=== PATIENT | male | born 1950 | race Caucasian/White ===

== ENCOUNTER 2018-06-03 11:16 | Outpatient (CLI) | payer MEDICARE, BC ==
[2018-06-03 14:07] LABS: #Basophils 0.1 thou/uL (0.0-0.2); #Eosinphils 0.3 thou/uL (0.0-0.7); #Monocytes 0.5 thou/uL (0.11-0.59); #Neutrophils 5.6 thou/uL (1.40-6.50); %Eosinophils 3.7 % (0.0-10.0); %Lymphocytes 23.3 % (21.0-51.0); %Monocytes 5.8 % (0.0-10.0); %Neutrophils 66.2 % (42.0-75.0); Hemoglobin 14.9 g/dL (14.0-18.0); Mean Corpuscular HGB CONC 33.4 g/dL (32.0-36.0); Mean Corpuscular Hemoglobin 30.8 pg (27.0-31.0); Mean Corpuscular Volume 92.3 fL (78.0-98.0); Platelet Count 230 thou/uL (130-400); RBC Distribution Width 11.6 % (11.5-14.5); Red Blood Cell (RBC) Count 4.85 mill/uL (4.70-6.10); White Blood Cell (WBC) Count 8.5 thou/uL (4.8-10.8)
[2018-06-03 14:29] LABS: ALT (SGPT) 22 U/L (8-55); AST (SGOT) 23 U/L (5-34); Albumin 4.4 g/dL (3.4-4.8); Alkaline Phosphatase 64 U/L (40-150); Anion Gap 13 mmol/L (10-20); BUN (Urea Nitrogen) 23 mg/dL (8.4-25.7); Bilirubin, Total 0.5 mg/dL (0.2-1.2); Calc. Creatinine Clearance 0 mL/min (70-130); Calcium 10.5 mg/dL (7.8-10.44); Carbon Dioxide 28 mmol/L (23-31); Chloride 102 mmol/L (98-107); Estimated GFR-MDRD 72; Globulin 3.1 g/dL (2.4-3.5); Glucose 82 mg/dL (80-115); Potassium 4.3 mmol/L (3.5-5.1); Protein, Total 7.5 g/dL (5.8-8.1); Sodium 139 mmol/L (136-145)
--- NOTE | 2018-06-04 18:52 | EKG ---
Test Reason : Blood Pressure : / mmHG Vent. Rate : 059 BPM Atrial Rate : 059 BPM P-R Int : 182 ms QRS Dur : 082 ms QT Int : 392 ms P-R-T Axes : 053 055 060 degrees QTc Int : 388 ms Sinus bradycardia Low voltage QRS Borderline ECG Confirmed by Francis JACKSON ([id number]) on 06/04/2018 6:51:59 PM Referred By: MARAH Confirmed By:Francis JACKSON
== END 2018-06-03 11:17 | disposition home or self-care (01) ==
LOC: LABBT 11:16
PROVIDERS: ATTEND Surgery
DX: Z01.818 Encounter for other preprocedural examination (principal); K40.90 Unilateral inguinal hernia, without obstruction or gangrene, not specified as recurrent
CPT/HCPCS: 80053; 85025; 93005; 93010

== ENCOUNTER 2018-06-09 05:57 | Day surgery (SDC) | payer MEDICARE, BC ==
[2018-06-03 11:49] VITALS: BMI 29.2
[2018-06-09] MEDS ORDERED: CEFAZOLIN 2 GM/50 ML BAG ONE (06:40)
[2018-06-09] MEDS ORDERED: Fentanyl 100 MCG/2 ML VIAL ONE (06:58)
[2018-06-09] MEDS ORDERED: Bupivacaine/Epinephrine 0.25% 30 ML VIAL ONE (07:00)
[2018-06-09] MEDS ORDERED: Midazolam HCl 2 mg/2 ml Vial ONE (07:16)
--- NOTE | 2018-06-09 13:00 | OP ---
DATE OF PROCEDURE: 06/09/2018 PREOPERATIVE DIAGNOSIS: Right inguinal hernia. PROCEDURE PERFORMED: Right inguinal hernia repair with mesh. INDICATIONS: This is a 68-year-old male, who has a painful right groin bulge, found to have a hernia. FINDINGS: Right direct inguinal hernia. DESCRIPTION OF PROCEDURE: After informed consent was obtained, the patient was taken to the operating room and given general endotracheal anesthesia, placed in the supine position. His groin was prepped and draped in the usual fashion. Local anesthesia infiltrated subcutaneously and deep. A transverse right inguinal incision was performed with subcu device sharply. The fascia of the external oblique was incised in direction of its fibers to the external ring. Spermatic cord isolated with a Saida drain. Cremasteric fibers . There was no indirect sac. There was a large direct inguinal hernia. This was circumscribed and reduced. Reduction maintained with a PHS hernia system. The posterior layer was placed in the preperitoneal space, anterior was laid out, sutured to the pubic tubercle medially, tucked under the external oblique fascia laterally. The cord placed anatomic. The external oblique fascia closed with a running 3-0 Vicryl. Rene was closed with interrupted 3-0 Vicryl and the skin closed with a running subcuticular 4-0 Rapide. Steri-Strips applied. Sterile bandage applied. The patient tolerated the procedure well, transferred to Recovery in good condition. Sponge and needle count verified correct x2. Job ID: [id number]
== END 2018-06-09 09:50 | disposition home or self-care (01) ==
LOC: SDC 05:57
PROVIDERS: ATTEND Surgery
PROC: 0YU50JZ Supplement Right Inguinal Region with Synthetic Substitute, Open Approach (ICD-10-PCS; principal; 2018-06-09)
DX: K40.90 Unilateral inguinal hernia, without obstruction or gangrene, not specified as recurrent (principal); Z79.82 Long term (current) use of aspirin; Z79.84 Long term (current) use of oral hypoglycemic drugs; Z79.899 Other long term (current) drug therapy; Z87.891 Personal history of nicotine dependence
CPT/HCPCS: 49505; C1781; J2250; J3010

== ENCOUNTER 2018-09-17 10:51 | Outpatient (CLI) | payer MEDICARE, BC ==
[2018-09-17] MEDS ORDERED: Iopamidol 370 76% 100 ML VIAL ONE (13:40)
--- NOTE | 2018-09-17 13:47 | CT ---
CT ANGIOGRAM NECK WITH CONTRAST: Date: 09/17/18 HISTORY: Carotid stenosis. COMPARISON: Ultrasound from 2007. TECHNIQUE: CT angiogram of the neck performed after the intravenous administration of contrast. 3D rendering was provided. FINDINGS: There are mild degenerative changes of the cervical spine. No acute fracture. No cervical adenopathy. Paraspinal musculature is normal. The lung apices are relatively clear. Vessels: The visualized portions of the pulmonary arteries are normal. The aorta is normal. Subclavian arteries are patent. Right common carotid artery is patent. Per NASCET criteria, there is approximately 60% stenosis of proximal right internal carotid artery du e to calcific and soft plaque for a length of 5.0 mm. This occurs just after the carotid bulb. There is approximately 40% stenosis of the left common carotid artery at the level of C4 and C5 due to soft plaque. Approximately 50% stenosis at the origin of the left internal carotid artery. IMPRESSION: 1. Approximately 60% stenosis proximal right ICA and 50% stenosis left ICA per NASCET criteria. 2. 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 Adequate flow into the cervical and intradural vertebral artery with faint contrast see n just before it extends into the basilar artery. POS: [facility]
== END 2018-09-17 10:52 | disposition home or self-care (01) ==
LOC: CT 10:51
PROVIDERS: ATTEND Thoracic Surgery (Cardiothoracic Vascular Surgery)
DX: I65.23 Occlusion and stenosis of bilateral carotid arteries (principal)
CPT/HCPCS: 70498; 82565; Q9967

== ENCOUNTER 2018-10-13 01:42 | Outpatient (CLI) | payer MEDICARE, BC ==
[2018-10-13 10:04] LABS: Hemoglobin 14.2 g/dL (14.0-18.0); Mean Corpuscular HGB CONC 33.5 g/dL (32.0-36.0); Mean Corpuscular Hemoglobin 30.8 pg (27.0-31.0); Mean Platelet Volume 8.1 fL (7.4-10.4); Platelet Count 181 thou/uL (130-400); RBC Distribution Width 11.9 % (11.5-14.5); Red Blood Cell (RBC) Count 4.61 mill/uL (4.70-6.10); White Blood Cell (WBC) Count 6.2 thou/uL (4.8-10.8)
[2018-10-13 10:28] LABS: Anion Gap 12 mmol/L (10-20); BUN (Urea Nitrogen) 21 mg/dL (8.4-25.7); Calc. Creatinine Clearance 0 mL/min (70-130); Calcium 9.9 mg/dL (7.8-10.44); Carbon Dioxide 27 mmol/L (23-31); Chloride 104 mmol/L (98-107); Estimated GFR-MDRD 67; Glucose 106 mg/dL (80-115); Potassium 4.4 mmol/L (3.5-5.1); Sodium 139 mmol/L (136-145)
== END 2018-10-13 01:43 | disposition home or self-care (01) ==
LOC: LABBT 01:42
PROVIDERS: ATTEND Thoracic Surgery (Cardiothoracic Vascular Surgery)
DX: Z01.818 Encounter for other preprocedural examination (principal); I65.21 Occlusion and stenosis of right carotid artery
CPT/HCPCS: 80048; 85027; 93005; 93010

== ENCOUNTER 2018-10-13 08:45 | Inpatient (IN) | payer MEDICARE, BC ==
[2018-10-14] MEDS ORDERED: Heparin 5,000 UNITS/ML VIAL ONE ×3 (07:00→10:55)
[2018-10-14] MEDS ORDERED: Lidocaine 1% PF 5 ML VIAL ONE (10:19)
[2018-10-14] MEDS ORDERED: Glycopyrrolate 0.2 MG/ML 5 ML SYRINGE ONE (10:19)
[2018-10-14] MEDS ORDERED: Dexamethasone 20 MG/5 ML VIAL ONE (10:19)
[2018-10-14] MEDS ORDERED: Metoclopramide HCl 10 MG/2 ML VIAL ONE (10:19)
[2018-10-14] MEDS ORDERED: Ondansetron PF 4 MG/2 ML Vial ONE (10:19)
[2018-10-14] MEDS ORDERED: diphenhydrAMINE 50 MG/ML VIAL ONE (10:19)
[2018-10-14] MEDS ORDERED: PROPOFOL 200 MG/20 ML VIAL ONE (10:19)
[2018-10-14] MEDS ORDERED: Rocuronium Bromide 10 MG/ML (10ML VIAL) ONE (10:19)
[2018-10-14] MEDS ORDERED: ePHEDrine 50 MG/ML VIAL ONE (10:19)
[2018-10-14] MEDS ORDERED: Midazolam HCl 2 mg/2 ml Vial ONE (10:52)
[2018-10-14] MEDS ORDERED: Protamine Sulfate 50 MG/5 ML VIAL ONE (10:55)
[2018-10-14] MEDS ORDERED: Bupivacaine HCl 0.5%/Epinephrine 1:200,000/PF 30 ml Vial ONE (10:56)
[2018-10-14] MEDS ORDERED: Fentanyl 100 MCG/2 ML VIAL ONE (11:14)
[2018-10-14] MEDS ORDERED: Ondansetron PF 4 MG/2 ML Vial IVP PRN (11:34)
[2018-10-14] MEDS ORDERED: hydrALAZINE 20 MG/ML VIAL SLOW IVP PRN (11:34)
[2018-10-14] MEDS ORDERED: Phenylephrine 10 MG/NS 250 ML 250 ML IVPB PRN (11:34)
[2018-10-14] MEDS ORDERED: Acetaminophen 325 MG TAB PO PRN (11:34)
[2018-10-14] MEDS ORDERED: Fentanyl 100 MCG/2 ML VIAL SLOW IVP PRN (11:34)
[2018-10-14] MEDS ORDERED: Nitroglycerin 50 MG/250 ML BOT 250 ML IVPB PRN (11:34)
[2018-10-14] MEDS ORDERED: HYDROcodone/Acetaminophen 5/325 mg Tablet PO PRN (11:34)
[2018-10-14] MEDS ORDERED: ePHEDrine/0.9% NaCl/PF SYRINGE 50 mg/10 ml ONE (12:33)
--- NOTE | 2018-10-14 14:24 | OP ---
DATE OF PROCEDURE: 10/14/2018 PREOPERATIVE DIAGNOSIS: Asymptomatic right carotid stenosis. POSTOPERATIVE DIAGNOSIS: Asymptomatic right carotid stenosis. PROCEDURE PERFORMED: Right carotid endarterectomy with patch angioplasty. ANESTHESIA: General endotracheal. ESTIMATED BLOOD LOSS: 100. DESCRIPTION OF PROCEDURE: After consent was obtained, the patient was brought to the operating room, placed in supine position on the operating table. Appropriate central line was placed and general endotracheal anesthesia was induced. Head was rotated to the left and joints appropriately supported. Right neck was prepped and draped in the usual sterile fashion. Skin incision was made along the anterior border of the sternocleidomastoid. Platysma was incised with electrocautery. Sternocleidomastoid was mobilized posteriorly. Facial vein branches were divided between clips and ties. The vagus and hypoglossal nerves were noted and protected throughout the procedure. Common internal and external carotid arteries were carefully dissected free from surrounding tissues. The patient was systemically heparinized. The internal common and external carotid arteries were serially clamped. Incision was made on the common carotid artery extended through the bulb along the internal carotid artery distal to plaque. A 10-[place] shunt was placed and antegrade flow reestablished. Endarterectomy was begun on the common carotid artery and extended through the bulb. Eversion endarterectomy was performed of the external carotid artery. A good tapered distal endpoint was obtained on the internal carotid artery. Medial fibers were debrided. Artery was flushed with heparinized saline. Bovine pericardial patch was sewn in place with running 6-0 Prolene suture. Prior to completion of patch suture line, shunt was clamped and removed. The arteries were back bled and flushed with heparinized saline. The patch suture line was completed and antegrade flow reestablished to the external carotid artery. Ten seconds later, antegrade flow was then reestablished at the internal carotid artery. Protamine was administered. Hemostasis was ensured. There was a great palpable pulse distal to our patch suture line. The wound was copiously irrigated, closed in layers, and Dermabond applied to the skin. The patient was awakened and neurologically intact in the operating room at completion of the procedure. Needle, sponge, and instrument counts were all reported as correct at the end of the procedure. Job ID: [id number]
[2018-10-14 14:52] VITALS: BMI 30.7
[2018-10-14] MEDS: HYDROcodone/Acetaminophen 5/325 mg Tablet PO PRN ×2 (14:59→23:02)
[2018-10-14] MEDS: Sodium Chloride 0.9% 1,000 ML IV SCH ×2 (15:01→20:11)
[2018-10-14] MEDS: CEFAZOLIN 2 GM in Premix Bag 1 BAG IVPB SCH ×2 (18:14→23:03)
[2018-10-15] MEDS: CEFAZOLIN 2 GM in Premix Bag 1 BAG IVPB SCH (06:03)
--- NOTE | 2018-10-15 06:12 | DIS ---
DATE OF ADMISSION: 10/14/2018 DATE OF DISCHARGE: 10/15/2018 PROCEDURES PERFORMED: Right carotid endarterectomy. DESCRIPTION OF HOSPITAL STAY: Mr. Olvera is admitted for elective right carotid endarterectomy. He has done well, being discharged to home to follow up with me in 2 weeks. Discharge medications are unchanged. Job ID: [id number]
[2018-10-15] MEDS: Sodium Chloride 0.9% 1,000 ML IV SCH (07:08)
[2018-10-15 07:17] VITALS: TEMP 98.4
[2018-10-15] MEDS ORDERED: GINKGO BILOBA PO SCH (09:00)
[2018-10-15] MEDS ORDERED: Magnesium Oxide 250 MG TAB PO SCH (09:00)
[2018-10-15] MEDS ORDERED: Aspirin 325 mg Enteric Coated Tablet PO SCH ×2 (09:00)
[2018-10-15] MEDS ORDERED: RED RICE YEAST PO SCH (09:00)
[2018-10-15] MEDS ORDERED: Ubidecarenone 50 MG CAP PO SCH (09:00)
[2018-10-15] MEDS ORDERED: Lactinex Tablet PO SCH (09:00)
[2018-10-15] MEDS ORDERED: Niacin 500 MG TAB PO SCH (09:00)
[2018-10-15] MEDS ORDERED: Multivit, Therapeutic 1 TAB PO SCH (09:00)
[2018-10-15] MEDS ORDERED: Fish Oil 1,000 MG CAP PO SCH (09:00)
[2018-10-15] MEDS ORDERED: Vitamin E 400 UNITS CAP PO SCH (09:00)
[2018-10-15] MEDS ORDERED: Cyanocobalamin (Vitamin B-12) 1,000 MCG TAB PO SCH (09:00)
== END 2018-10-15 08:35 | disposition home or self-care (01) | DRG 39 ==
LOC: CCU 10-14 13:46
PROVIDERS: ADMIT Thoracic Surgery (Cardiothoracic Vascular Surgery); ATTEND Thoracic Surgery (Cardiothoracic Vascular Surgery)
PROC: 03CM0ZZ Extirpation of Matter from Right External Carotid Artery, Open Approach (ICD-10-PCS; principal; 2018-10-14)
PROC: 03CK0ZZ Extirpation of Matter from Right Internal Carotid Artery, Open Approach (ICD-10-PCS; 2018-10-14)
PROC: 03UM0JZ Supplement Right External Carotid Artery with Synthetic Substitute, Open Approach (ICD-10-PCS; 2018-10-14)
PROC: 03UK0JZ Supplement Right Internal Carotid Artery with Synthetic Substitute, Open Approach (ICD-10-PCS; 2018-10-14)
DX: I65.21 Occlusion and stenosis of right carotid artery (principal); I10 Essential (primary) hypertension; E78.5 Hyperlipidemia, unspecified; Z79.82 Long term (current) use of aspirin
CPT/HCPCS: 80048; 85027; 93005; 93010; J0670; J0690; J1642; J1644; J2250; J2720; J3010; J7620

== ENCOUNTER 2022-04-14 08:27 | Outpatient (CLI) | payer MEDICARE, BC ==
[2022-04-14] MEDS ORDERED: Magnevist 469MG/ML 20 ML VIAL ONE (15:01)
== END 2022-04-14 08:28 | disposition home or self-care (01) ==
LOC: TBSIIMAG 08:27
PROVIDERS: ATTEND Urology
DX: R97.20 Elevated prostate specific antigen [PSA] (principal)
CPT/HCPCS: 72197; 82565; A9579